=== PATIENT | male | born 1995 | race American Indian/Alaskan Native ===

== ENCOUNTER 2019-05-16 16:59 | Emergency (ER) | payer SELFPAY ==
--- NOTE | 2019-05-16 18:08 | Event Note ---
ED Screening Note Date of service: 05/16/19 Time: 18:07 ED Screening Note: pt presents for abd pain This initial assessment/diagnostic orders/clinical plan/treatment(s) is/are subject to change based on patients health status, clinical progression and re- assessment by fellow clinical providers in the ED. Further treatment and workup at subsequent clinical providers discretion. Patient/guardian urged not to elope from the ED as their condition may be serious if not clinically assessed and m anaged. Initial orders include: labs, ua
[2019-05-16 18:40] LABS: Basophils % (Auto) 0.1 % (0.0-1.8); Eosinophils # (Auto) 0.1 K/mm3 (0.0-0.4); Eosinophils % (Auto) 0.6 % (0.0-4.3); Hematocrit 44.9 % (35.5-45.6); Hemoglobin 15.7 gm/dl (11.8-15.2); Lymphocytes # (Auto) 1.2 K/mm3 (1.2-5.4); Mean Corpuscular HGB Conc 35 % (32-34); Mean Corpuscular Volume 89 fl (84-94); Monocytes # (Auto) 0.6 K/mm3 (0.0-0.8); Platelet Count 116 K/mm3 (140-440); Red Blood Count 5.07 M/mm3 (3.65-5.03); Red Cell Distribution Width 12.9 % (13.2-15.2)
[2019-05-16] MEDS ORDERED: KETOROLAC 30 MG/1 ML INJ IV ONE (18:57)
[2019-05-16] MEDS ORDERED: ONDANSETRON 4 MG/2 ML INJ IV ONE (18:57)
[2019-05-16] MEDS ORDERED: SODIUM CHLORIDE 0.9% 1000 ML 1,000 ML IV ONE (18:57)
[2019-05-16 19:01] LABS: Bilirubin,Urine NEG (Negative); Blood,Urine NEG (Negative); Color,Urine Yellow (Yellow); Mucus,Urine 1+ /HPF; Protein,Urine <15 mg/dL mg/dL (Negative)
[2019-05-16 19:03] LABS: Alanine Aminotransferase 12 units/L (7-56); Albumin 5.1 g/dL (3.9-5); BUN/Creatinine Ratio 11; Blood Urea Nitrogen 9 mg/dL (9-20); Calcium 9.3 mg/dL (8.4-10.2); Hemolysis Index 11
--- NOTE | 2019-05-16 19:20 | Emergency Department Report ---
ED Abdominal Pain HPI - General Chief Complaint: Abdominal Pain Stated Complaint: ABD PAIN Time Seen by Provider: 05/16/19 18:07 Source: patient, EMS Mode of arrival: Ambulatory Limitations: No Limitations - History of Present Illness Initial Comments: Patient is a 24-year-old white male with a history of seizures who presents to the ED with complaint of acute onset persistent right flank pain that radiates to the right lower quadrant area with nausea for the last 3 days intermittently. Patient states that the pain was initially mild but in the last 24 hours the pain has been severely sharp and frequent in occurrence, worse with any movement. Patient denies dysuria, urinary frequency and urgency, testicular pain, penile discharge, vomiting, diarrhea, hematuria, dizziness, fever, chills, constipation, chest pain or shortness of breath. MD Complaint: abdominal pain, flank pain (right flank pain), other (nausea) -: Sudden, days(s) (3) Location: RLQ, R flank Radiation: RLQ, R flank Migration to: no migration Severity: severe Severity scale (0 -10): 7 Quality: cramping, stabbing, aching, sharp Consistency: intermittent Improves With: nothing Worsens With: movement Associated Symptoms: denies other symptoms, nausea. denies: vomiting, diarrhea, fever, chills, constipation, dysuria, hematemesis, melena, hematuria, anorexia, other - Related Data Previous Rx's Medication Instructions Recorded Last Taken Type Dicyclomine [Bentyl] 20 mg PO QID #20 tablet 05/16/19 Unknown Rx Docusate Sodium [Colace CAP] 100 mg PO BID PRN #30 capsule 05/16/19 Unknown Rx Magnesium Citrate 295 ml PO ONCE #1 bottle 05/16/19 Unknown Rx Allergies Allergy/AdvReac Type Severity Reaction Status Date / Time No Known Allergies Allergy Unverified 05/16/19 16:59 ED Review of Systems ROS: Stated complaint: ABD PAIN Other details as noted in HPI Constitutional: denies: chills, fever Eyes: denies: eye pain, eye discharge, vision change ENT: denies: ear pain, throat pain Respiratory: denies: cough, shortness of breath, wheezing Cardiovascular: denies: chest pain, palpitations Endocrine: no symptoms reported Gastrointestinal: abdominal pain, nausea. denies: diarrhea Genitourinary: denies: urgency, dysuria Musculoskeletal: denies: back pain, joint swelling, arthralgia Skin: denies: rash, lesions Neurological: denies: headache, weakness, paresthesias Psychiatric: denies: anxiety, depression Hematological/Lymphatic: denies: easy bleeding, easy bruising ED Past Medical Hx - Past Medical History Previous Medical History?: No - Surgical History Past Surgical History?: Yes Additional Surgical History: facial reconstruction. sinus reconstruction - Social History Smoking Status: Never Smoker Substance Use Type: None - Medications Home Medications: Home Medications Medication Instructions Recorded Confirmed Last Taken Type Dicyclomine [Bentyl] 20 mg PO QID #20 tablet 05/16/19 Unknown Rx Docusate Sodium [Colace CAP] 100 mg PO BID PRN #30 capsule 05/16/19 Unknown Rx Magnesium Citrate 295 ml PO ONCE #1 bottle 05/16/19 Unknown Rx ED Physical Exam - General Limitations: No Limitations General appearance: alert, in no apparent distress - Head Head exam: Present: atraumatic, normocephalic, normal inspection - Eye Eye exam: Present: normal appearance, PERRL, EOMI Pupils: Present: normal accommodation - ENT ENT exam: Present: normal exam, normal orophraynx, mucous membranes moist, TM's normal bilaterally, normal external ear exam - Neck Neck exam: Present: normal inspection, full ROM. Absent: tenderness, lymphadenopathy - Respiratory Respiratory exam: Present: normal lung sounds bilaterally. Absent: respiratory distress, wheezes, rales, rhonchi, chest wall tenderness, decreased breath sounds, prolonged expiratory - Cardiovascular Cardiovascular Exam: Present: regular rate, normal rhythm, normal heart sounds. Absent: systolic murmur, diastolic murmur, rubs, gallop - GI/Abdominal GI/Abdominal exam: Present: soft, tenderness (mildly tender right lower quadrant and right flank area with no guarding or rebound), normal bowel sounds. Absent: hyperactive bowel sounds, hypoactive bowel sounds, organomegaly, mass, pulsatile mass, hernia - Rectal Rectal exam: Present: deferred - exam: Present: normal inspection. Absent: testicular tenderness, urethral discharge, scrotal swelling, vertical testicular lie External exam: Present: normal external exam. Absent: lesions - Extremities Exam Extremities exam: Present: normal inspection, full ROM, normal capillary refill - Back Exam Back exam: Present: normal inspection, full ROM. Absent: tenderness, CVA tenderness (R), CVA tenderness (L), muscle spasm, paraspinal tenderness - Neurological Exam Neurological exam: Present: alert, oriented X3, CN II-XII intact, normal gait, reflexes normal - Psychiatric Psychiatric exam: Present: normal affect, normal mood - Skin Skin exam: Present: warm, dry, intact, normal color. Absent: rash ED Course Vital Signs 05/16/19 05/16/19 05/16/19 18:05 19:19 19:49 Temperature 98.4 F Pulse Rate 79 Respiratory 19 16 16 Rate Blood Pressure 98/62 [Left] O2 Sat by Pulse 98 Oximetry - Reevaluation(s) Reevaluation #1: 05/16/19 19:20 This is a 24-year-old male who presented to the ED with the right flank and right lower quadrant pain with nausea for 3 days. In the ED, patient is alert and oriented 3 and is not in distress. Labs were drawn and patient treated for pain in the ED. Lab test results were reviewed and are nonactionable. Abdomen pelvis CT scan with contrast was also ordered. The abdomen pelvis CT scan with contrast shows evidence of distal constipation/rectal impaction and a suggestion of mild periportal edema as can be seen with hepatitis and clinical correlation is suggested. On reevaluation, patient's pain is well controlled with medications. Patient was discharged home on pain medications and laxatives for constipation and was advised follow-up with his primary care physician in 7-10 days for reevaluation or return to the ED immediately if symptoms get worse. ED Medical Decision Making - Lab Data Result diagrams: 05/16/19 18:14 05/16/19 18:14 - Radiology Data Radiology results: report reviewed, image reviewed Findings [address] [address] Cat Scan Report Signed Patient: DAKOTA MARTINEZ MR#: [id number] : 1995 Acct:[id number] Age/Sex: 24 / M ADM Date: 05/16/19 Loc: ED Attending Dr: Ordering Physician: JC SAEZ Date of Service: 05/16/19 Procedure(s): CT abdomen pelvis w con Accession Number(s): [id number] cc: JC SAEZ CT ABDOMEN AND PELVIS WITH CONTRAST INDICATION: abdominal pain CONTRAST: 100 cc Omnipaque 300 IV COMPARISON: None available. All CT scans at this location are performed using CT dose reduction for ALARA by means of automated exposure control. FINDINGS: Lung bases are clear. No pneumoperitoneum is seen. No urinary obstructive changes are noted. Mildly heterogenous appearance of the spleen is thought related to phase of contrast. The appears the liver may also relate to this early phase of contrast though I cannot exclude mild periportal edema. No masses are seen. No focal inflammatory changes are noted. No lymphadenopathy is seen. No free fluid is noted. Large amount of stool is seen in the rectum but I do not see evidence of bowel obstruction and normal amounts of stool are seen more proximally in the colon. Appendix appears within normal limits. No evidence of small bowel obstruction is seen. No masses are noted. Gallbladder and bile ducts appear within normal limits. IMPRESSION: 1. Evidence of distal constipation/rectal impaction 2. There is a suggestion of mild periportal edema as can be seen with hepatitis and clinical correlation is suggested. Signer Name: Antonio Rosales MD Signed: 05/16/2019 9:36 PM Workstation Name: [id number] Transcribed By: GJ Dictated By: Antonio Rosales MD Electronically Authenticated By: Antonio Rosales MD Signed Date/Time: 05/16/192135 DD/ 30 TD/TT: - Medical Decision Making This is a 24-year-old male who presented to the ED with the right flank and right lower quadrant pain with nausea for 3 days. In the ED, patient is alert and oriented 3 and is not in distress. Labs were drawn and patient treated for pain in the ED. Lab test results were reviewed and are nonactionable. Abdomen pelvis CT scan with contrast was also ordered. The abdomen pelvis CT scan with contrast shows evidence of distal constipation/rectal impaction and a suggestion of mild periportal edema as can be seen with hepatitis and clinical correlation is suggested. On reevaluation, patient's pain is well controlled with medications. Patient was discharged home on pain medications and laxatives for constipation and was advised follow-up with his primary care physician in 7-10 days for reevaluation or return to the ED immediately if symptoms get worse. - Differential Diagnosis Acute appendicitis; Kidney stones; UTI; Constipation; Colitis Critical care attestation.: If time is entered above; I have spent that time in minutes in the direct care of this critically ill patient, excluding procedure time. ED Disposition Clinical Impression: Abdominal pain in male Constipation Qualifiers: Constipation type: other constipation type Qualified Code(s): K59.09 - Other constipation Disposition: TO HOME OR SELFCARE Is pt being admited?: No Does the pt Need Aspirin: No Condition: Stable Instructions: Abdominal Pain (ED), Constipation (ED) Additional Instructions: Take medication with food, drink plenty of fluids and follow-up with your primary care physician in 5-7 days for reevaluation. Return to the ED immediately if symptoms get worse. Prescriptions: Dicyclomine [Bentyl] 20 mg PO QID #20 tablet Docusate Sodium [Colace CAP] 100 mg PO BID PRN #30 capsule PRN Reason: Pain , Severe (7-10) Magnesium Citrate 295 ml PO ONCE #1 bottle Time of Disposition: 21:56 Print Language: KOREAN
--- NOTE | 2019-05-16 21:41 | Cat Scan Report ---
CT ABDOMEN AND PELVIS WITH CONTRAST INDICATION: abdominal pain CONTRAST: 100 cc Omnipaque 300 IV COMPARISON: None available. All CT scans at this location are performed using CT dose reduction for ALARA by means of automated e xposure control. FINDINGS: Lung bases are clear. No pneumoperitoneum is seen. No urinary obstructive changes are noted . Mildly heterogenous appearance of the spleen is thought related to phase of contrast. The appears t he liver may also relate to this early phase of contrast though I cannot exclude mild periportal hever a. No masses are seen. No focal inflammatory changes are noted. No lymphadenopathy is seen. No free f luid is noted. Large amount of stool is seen in the rectum but I do not see evidence of bowel obstruc tion and normal amounts of stool are seen more proximally in the colon. Appendix appears within josephine l limits. No evidence of small bowel obstruction is seen. No masses are noted. Gallbladder and bile d ucts appear within normal limits. IMPRESSION: 1. Evidence of distal constipation/rectal impaction 2. There is a suggestion of mild periportal edema as can be seen with hepatitis and clinical correlat ion is suggested. Signer Name: Antonio Rosales MD Signed: 05/16/2019 9:36 PM Workstation Name: [id number]
[2019-05-16 22:20] VITALS: BP 111/71
== END 2019-05-16 22:20 | disposition home or self-care (01) ==
LOC: ED 16:59
DX: K59.00 Constipation, unspecified (principal); Z79.899 Other long term (current) drug therapy
CPT/HCPCS: 36415; 74177; 80053; 81001; 85025; 96374; 96375; 99284; J1885; J2405; J7030; Q9967